=== PATIENT | female | born 1970 | race Caucasian/White ===

== ENCOUNTER 2024-03-09 11:12 | Emergency (ER) | payer OTHER ==
[~2024-03-09] VITALS: Ht 170.2 cm; Wt 61.2 kg
[2024-03-09] MEDS ORDERED: Acetaminophen 500 MG Tab PO ONE (12:45)
[2024-03-09] MEDS ORDERED: Methocarbamol 500 MG Tab PO ONE (12:45)
[2024-03-09] MEDS ORDERED: Ketorolac Tromethamine 30mg Vial IM ONE (12:45)
[2024-03-09] MEDS ORDERED: Gabapentin 300 MG Cap PO ONE (12:45)
[2024-03-09] MEDS ORDERED: GABA300 PO ×2 (12:52→13:07)
[2024-03-09] MEDS ORDERED: Robaxin750 MG PO ×2 (12:52→13:07)
== END 2024-03-09 13:12 | disposition home or self-care (01) ==
LOC: ER 11:12
DX: S29.012A Strain of muscle and tendon of back wall of thorax, initial encounter (principal); G56.01 Carpal tunnel syndrome, right upper limb; F41.9 Anxiety disorder, unspecified; X58.XXXA Exposure to other specified factors, initial encounter; Z79.899 Other long term (current) drug therapy
CPT/HCPCS: 96372; 99283-25; A9270; J1885